=== PATIENT | male | born 1940 | race Caucasian/White ===

== ENCOUNTER 2021-07-12 16:14 | Inpatient (IN) | payer OTHER ==
[~2021-07-12] VITALS: Ht 185.4 cm; Wt 65.8 kg
[2021-07-12] MEDS ORDERED: LIPITOR40 MG PO (17:12)
[2021-07-12] MEDS ORDERED: CARVEDILOL12.5 MG PO (17:13)
[2021-07-12] MEDS ORDERED: FUROSEMIDE 40 M40 M1 PO (17:14)
[2021-07-12] MEDS ORDERED: GABAPENTIN100 MG PO (17:15)
[2021-07-12] MEDS ORDERED: GLIPIZIDE 10 MG10 MG PO (17:16)
[2021-07-12] MEDS ORDERED: NEURONTIN 400M400 M2 PO (17:16)
[2021-07-12] MEDS ORDERED: METFORMIN HCL500 MG PO (17:17)
[2021-07-12] MEDS ORDERED: PROTONIX 20 MG20 M1 PO (17:18)
[2021-07-12] MEDS ORDERED: XARELTO20 MG PO (17:18)
--- NOTE | 2021-07-12 18:36 | NUR ---
PT TRANSFERED TO THE UNIT FROM [facility] VIA AMBULANCE. PT ORIENTED TO ROOM AND BED SPACE. ASSESSMENT CHARTED - SEEN BY ADMITTING DOCTOR - CARDIOLOGY CONSULTED. AWAITING ORDERS. NO CO'S AT THE PRESENT TIME.
[2021-07-12 20:19] VITALS: BP 110/82
[2021-07-12 23:05] LABS: ABSOLUTE NEUTROPHILS 16.4 thou/uL (1.4-8.2); BASOPHILS 0.3 % (0.0-2.0); EOSINOPHILS 0.1 % (0.0-3.0); HEMATOCRIT 38.1 % (42.0-52.0); HEMOGLOBIN 12.6 gm/dL (14.0-18.0); MCH 30.7 pg (26.0-34.0); MCV 92.8 fL (80.0-100.0); MONOCYTES 7.7 % (1.0-8.0); PLATELET COUNT 175 thou/uL (150-400); POLYS 82.9 % (36.0-66.0); RDW 15.3 % (10.5-14.5); WBC 19.8 thou/uL (4.0-11.0)
[2021-07-12 23:14] LABS: CALCIUM 8.6 mg/dL (8.5-10.1); CREATININE 1.9 mg/dL (0.7-1.3); POTASSIUM 4.2 mmol/L (3.5-5.1)
[2021-07-12 23:20] LABS: ALBUMIN 2.6 g/dL (3.4-5.0); MAGNESIUM 2.2 mg/dL (1.8-2.4); TOTAL BILIRUBIN 1.1 mg/dL (0.2-1.0); TOTAL PROTEIN 6.3 g/dL (6.4-8.2)
[2021-07-12 23:29] VITALS: BP 119/55
[2021-07-13] VITALS (9 sets, daily range): BP systolic 108–138; BP diastolic 45–62
[2021-07-13 06:18] LABS: HEMATOCRIT 39.6 % (42.0-52.0); HEMOGLOBIN 13.2 gm/dL (14.0-18.0); MCH 31.1 pg (26.0-34.0); MCHC 33.4 g/dL (28.0-37.0); MCV 93.1 fL (80.0-100.0); RBC 4.25 mil/uL (4.50-6.00); RDW 15.5 % (10.5-14.5)
[2021-07-13 06:35] LABS: APTT 46.3 Seconds (24.5-32.8); INR 1.11
[2021-07-13 07:08] LABS: ALBUMIN 2.6 g/dL (3.4-5.0); CREATININE 1.8 mg/dL (0.7-1.3); MAGNESIUM 2.4 mg/dL (1.8-2.4); POTASSIUM 4.4 mmol/L (3.5-5.1); TOTAL BILIRUBIN 1.1 mg/dL (0.2-1.0); TOTAL PROTEIN 6.9 g/dL (6.4-8.2)
--- NOTE | 2021-07-13 18:25 | NUR ---
ASSESSMENT CHARTED - NO MEDS GIVEN PT NPO TODAY FOR SURGERY THIS AFTERNOON. SPENT THE DAY RESTING IN BED. SLEEPING ON AND OFF. ACCUCHECKS CHARTED - NO COVERAGE GIVEN. PT VOIDING PERURINAL. NO CO'S OF PAIN OR NAUSEA. PT TO SURGERY VIA BED AT 1715 - DAUGHTER HERE AT TIME OF SURGERY.
[2021-07-14] VITALS (10 sets, daily range): BP systolic 103–118; BP diastolic 45–84
[2021-07-14 04:00] LABS: ABSOLUTE NEUTROPHILS 12.3 thou/uL (1.4-8.2); BASOPHILS 0.4 % (0.0-2.0); EOSINOPHILS 0.4 % (0.0-3.0); HEMATOCRIT 35.1 % (42.0-52.0); HEMOGLOBIN 11.3 gm/dL (14.0-18.0); LYMPHOCYTES 8.3 % (24.0-44.0); MCH 30.6 pg (26.0-34.0); MCHC 32.3 g/dL (28.0-37.0); MCV 94.7 fL (80.0-100.0); MONOCYTES 7.5 % (1.0-8.0); PLATELET COUNT 167 thou/uL (150-400); POLYS 83.4 % (36.0-66.0); RBC 3.71 mil/uL (4.50-6.00); RDW 15.6 % (10.5-14.5); WBC 14.7 thou/uL (4.0-11.0)
[2021-07-14 04:07] LABS: ALBUMIN 2.3 g/dL (3.4-5.0); CALCIUM 8.6 mg/dL (8.5-10.1); CREATININE 1.7 mg/dL (0.7-1.3); MAGNESIUM 2.5 mg/dL (1.8-2.4); POTASSIUM 4.1 mmol/L (3.5-5.1); TOTAL BILIRUBIN 1.1 mg/dL (0.2-1.0); TOTAL PROTEIN 6.3 g/dL (6.4-8.2)
--- NOTE | 2021-07-14 07:39 | EKG ---
[place] [address] [facility] [place] [address] ELECTROCARDIOGRAM REPORT Name: AMRITA ALLEN Rosa Room #: 214-P ADM IN M.R.#: [id number] Admission: 07/12/21 Attend Phys: Khalida Cole Discharge: Date of : 44 Report #: [id number] 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
--- NOTE | 2021-07-14 08:25 | 2DMMODE ---
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 There is global hypokinesis of the left ventricle. There is severe hypokinesis in the apical wall. There is normal left ventricular wall thickness. Left ventricular ejection fraction is severely decreased. Left ventricular apical thrombus is present. LVEF is 20%. Grade I - abnormal relaxation pattern. Right Ventricle Right ventricle is at the upper limits of normal. The right ventricular systolic function is normal. Atria Left atrium is at the upper limits of normal. The right atrium size is normal. Aortic Valve The aortic valve is normal in structure. No aortic regurgitation is [address] [place] [address] 2 D/M-MODE ECHOCARDIOGRAM Name: AMRITA ALLEN Room #: 214-P ADM IN M.R.#: [id number] Admission: 07/12/21 Attend Phys: Khalida Kearney Discharge: Date of : 44 Report #: [id number] present. There is no aortic valvular stenosis. Mitral Valve The mitral valve is normal in structure. Mild mitral regurgitation. No evidence of mitral valve stenosis. Tricuspid Valve The tricuspid valve is normal in structure. There is no tricuspid valve regurgitation noted. Pulmonic Valve The pulmonary valve is normal in structure. Great Vessels The aortic root is normal in size. The inferior vena cava is not visualized. Pericardium There is no pericardial effusion. <Conclusion> Left ventricle is dilated measuring 7.4 cm. Left ventricular ejection fraction is severely decreased. LVEF is 20%. There is global hypokinesis of the left ventricle. There is severe hypokinesis in the apical wall. Right ventricle is at the upper limits of normal. The aortic valve is normal in structure. The mitral valve is normal in structure. Mild mitral regurgitation. The tricuspid valve is normal in structure. The pulmonary valve is normal in structure. The aortic root is normal in size. There is no pericardial effusion. Left ventricular apical thrombus is present. <ELECTRONICALLY SIGNED> By: aJson Wagner MD 07/14/21 0159 0159 0159 Jason Wagner MD /SUZIE
--- NOTE | 2021-07-14 10:52 | NUR ---
CONSULT [id number] WAS COMPLETED BY THIS COIN ROLLING MACHINE OPERATOR. MEDICAL STAFF INTERRUPTED AND RUSHED VISIT. THIS COIN ROLLING MACHINE OPERATOR WILL NEED TO FOLLOW UP WITH PT TO CLARIFY HE THOUGHT WAS DONE WITH EVERYTHNG AND HAD NO NEEDS.
--- NOTE | 2021-07-14 16:37 | NUR ---
PATIENT ADMITTED FOR NSTEMI. CHART REVIEWED AND CASE DISCUSSED WITH CARE TEAM. CM MET WITH PT THIS DAY. CM ROLE INTRODUCED. PT REPORTS HE LIVES AT HOME IN APARTMENT BY HIMSELF. HE REPORTS USING A WALKER AND AN ELECTRIC WHEELCHAIR AND HAS FOR 10 YEARS. HE DOES NOT HAVE HOME 02. HE REPORTS NO STAIRS INSIDE APARTMENT AND USES A RAMP OUTSIDE TO GET IN. HE REPORTS HIS SON CHECKS ON HIM EVERY DAY SOMETIMES STAYING A FEW HOURS. ASSIST WITH [employer], AND PAYING BILLS. 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 PT DAUGHTER AT BEDSIDE AND REPORTS PT MAY STAY WITH HIM ON DC WITH SERVICE. REPORTS MADAN . ARRANGING WITH MADAN LIASON AT THIS TIME. CM WILL CONTINUE TO FOLLOW.
--- NOTE | 2021-07-14 17:00 | NUR ---
I have reviewed the documentation by WANDY MUSTAFA from 07/14/21 to 07/14/21 and I concur with it. BABATUNDE BARFIELD, PT, DPT
--- NOTE | 2021-07-15 06:48 | NUR ---
ASSUMED CARE OF PT AT 1900. PT ASSESSED TO BE AOX4 80M PRESENTING POST LAP NANY. PT WAS ABLE TO REST QUIETLY THROUGHOUT THE NIGHT WITH NO COMPLAINTS, VSS. PT STABLE ON ROOM AIR, LAP SITES INTACT, NO PAIN, BULB DRAIN COMPRESSED (35ML OUT), SR BBB ON THE MONITOR, AND AMBULATES SBA WITH A WALKER. RESTING IN ROOM NOW, WILL CONT TO MONITOR.
[2021-07-15] MEDS ORDERED: HYDROCODON-ACE1 EAC7 PO (08:41)
[2021-07-15] MEDS ORDERED: MIRALAX119 GM PO (08:41)
[2021-07-15 09:29] VITALS: BP 120/50
[2021-07-15 13:00] VITALS: BP 126/58
--- NOTE | 2021-07-15 16:41 | NUR ---
CM SPOKE WITH [facility]. THEY ARE UNABLE TO ACCEPT PT AT THIS TIME. WILL REVISIT ON WEDNESDAY IF PT STILL HERE. CM WILL CONTINUE TO FOLLOW WITH DC NEEDS. REFERRAL SENT TO [facility].
[2021-07-15 17:26] VITALS: BP 121/42
[2021-07-15 19:42] VITALS: BP 105/66
--- NOTE | 2021-07-16 03:33 | NUR ---
ASSUMED PT CARE AT 1900.PTWAS OBSERVED LYING ON HIS BED WATCHING TV AT SHIFT CHANGE.LAP SITES C/D/I.BRI HERRERA IN PLACE WITH SEROUSANGUINEOUS DRAINAGE.PT REFUSED HIS MIRALAX AT HS,STATED THAT HE HAS NOT TAKEN IT BEFORE.EDUCATION GIVEN.PT PROGRESSING TOWARDS DC GOALS.CALL LIGHT WITHIN REACH.
[2021-07-16 04:41] VITALS: BP 138/69
[2021-07-16 07:59] VITALS: BP 132/60
[2021-07-16 11:33] LABS: ALBUMIN 2.2 g/dL (3.4-5.0); CALCIUM 8.5 mg/dL (8.5-10.1); CREATININE 1.3 mg/dL (0.7-1.3); POTASSIUM 4.6 mmol/L (3.5-5.1); TOTAL BILIRUBIN 0.9 mg/dL (0.2-1.0); TOTAL PROTEIN 6.6 g/dL (6.4-8.2)
[2021-07-16 11:57] VITALS: BP 125/77
[2021-07-16] MEDS ORDERED: LISINOPRIL2.5 MG PO (13:58)
[2021-07-16] MEDS ORDERED: JARDIANCE10 MG PO (13:58)
[2021-07-16] MEDS ORDERED: LASIX 20 MG TAB20 MG PO (13:58)
--- NOTE | 2021-07-16 15:44 | NUR ---
CM MET WITH PT THIS DAY AND CONTINUE DC PLANNING. [facility] UNABLE TO ACCEPT PT THEY DO NOT SERVICE HIS AREA. REFERRAL ALSO SENT TO [facility] . CALLED AND THEY DO COVER PTS HOME AREA. AWAIING FOR ACCEPTANCE AT THIS TIME. SHOULD PT NOT BE ACCEPTABLE PT AGREES TO GO HOME WITH DAUGHTER IN [place] BEFORE RETURNING HOME. CM WILL CONTINUE TO FOLLOW FOR DC PLANNING ONCE PT MEDICALLY STABLE.
[2021-07-16 16:07] VITALS: BP 112/71
[2021-07-16 21:01] VITALS: BP 131/67
[2021-07-17 03:26] LABS: PROTIME 10.9 Seconds (10.5-12.1)
[2021-07-17 04:23] VITALS: BP 131/59
[2021-07-17 07:45] VITALS: BP 134/54
[2021-07-17 11:50] VITALS: BP 141/53
--- NOTE | 2021-07-17 12:07 | PATH ---
[facility] [place] [address] PATHOLOGY RPT PROCEDURE Name: AMRITA ALLEN Room #: 214-P [facility] IN M.R.#: [id number] Admission: 07/12/21 Date of : 44 Discharge: Report #: [id number] Path Case #: [id number] [facility] Accession Number: [id number] . 01 Material submitted: . gallbladder - GALLBLADDER . 01 Clinical history: . LAPAROSCOPIC CHOLECYSTECOMY . 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 . (SCA:mm; 07/16/2021) [facility] 07/16/2021 [facility] Local . 02 Electronically signed: . Hernando Banks DO, Pathologist NPI- [id number] . 01 Gross description: . Fixative: Formalin Labeled: Gallbladder Specimen received: Previously opened/severely torn gallbladder Dimensions: 9.8 x 4.2 x 4.1 cm Serosa: Adipose-covered Lymph node: Not identified Mucosa: Covered in overlying light green material (a slight amount of velvety, red-brown and grossly is identified at the fundal aspect) Average wall thickness: Up to 0.2 cm Calculi: None identified Abnormalities: None identified . Breaker Boss body, fundus, and the cystic duct margin in cassette A1. (CAA; 07/15/2021) QAC/QA 07/15/2021 0914 Local . 02 Pathologist provided ICD-10: K81.2 . 02 CPT . 143774 Specimen Comment: A courtesy copy of this report has been sent to [phone] Specimen Comment: Report sent to Specimen Comment: A duplicate report has been generated due to demographic updates. [address] [address] PATHOLOGY RPT PROCEDURE Name: AMRITA ALLEN Room #: 214-P [facility] IN M.R.#: [id number] Admission: 07/12/21 Date of : 44 Discharge: Report #: [id number] Path Case #: [id number] Performed at: 01 [facility] [address] [id number] MD Will Goldberg MD Phone: [phone] Performed at: 02 [facility] [address] [id number] Burdick MD Phone: [phone]
[2021-07-17 13:48] VITALS: BP 141/53
--- NOTE | 2021-07-17 13:49 | NUR ---
CM MET WITH PT THIS DAY. PTS DAUGHTER JORGE AT SIDE. PT INSTRUCED CM NOT FINDING HH PROVIDERS ABLE TO ACCEPT PT WITH [facility] AND [facility]. PT AND PTS DAUGHTER REPORT PT WILL THEN GO HOME WITH JORGE FOR A WHILE AND SEE IF CAN GET APPROVAL FOR HH IN [place]. SPOKE TO [facility], [facility], [facility], [facility] INDICATING [place] ADR[facility] WITH DENIALS R/T [place] OR UNABLE TO TAKE PTS [place]. SPOKE WITH PT AND PTS DAUGHTER WHO IS A NURSE AND BOTH VOICED COMFORTABLE TAKING PT TO HER HOME IN [place] AND FOLLOWING UP WITH THEIR PCP AND SHOULD HH NEEDS [place]. NO FURTHER CM INTERVENTIONS AT THIS TIME.
[2021-07-17 16:00] VITALS: BP 147/45
--- NOTE | 2021-07-17 16:51 | NUR ---
ASSUMED CARE OF PATIENT AT 0700. VSS. PATIENT REMAINS A&O. NO C/O MAJOR PAIN AND NO NEED FOR ANY PAIN MEDICATION THIS SHIFT. BRI DRAIN REMAINS IN PLACE TO THE RLQ. PATIENT IS TO DC HOME TODAY ONCE MD GETS ORDERS IN. PATIENT STATES HE WILL BE LEAVING AT SIX IF THE ORDERS ARE NOT IN.
[2021-07-17] MEDS ORDERED: LEVOFLOXACIN750 MG PO (17:34)
[2021-07-17] MEDS ORDERED: WARFARIN SODIUM5 MG PO (17:34)
[2021-07-17] MEDS ORDERED: ACETAMINOPHEN325 M1 PO (17:34)
[2021-07-17 17:57] VITALS: BP 141/53
--- NOTE | 2021-07-18 09:21 | O ---
[facility] [place] [address] [place] [address] OPERATIVE REPORT Name: AMRITA ALLEN Room #: 214-P [facility] IN M.R.#: [id number] Admission: 07/12/21 Attend Phys: Khalida Cole Discharge: 07/17/21 Date of : 44 Report #: [id number] THIS REPORT FOR: cc: FAM - Family physician unknown FAM - Family physician unknown Rivas Ball MD ~ DATE OF SERVICE: 07/13/2021 PREOPERATIVE DIAGNOSIS: Acute cholecystitis. POSTOPERATIVE DIAGNOSIS: Acute gangrenous cholecystitis. OPERATION: Laparoscopic cholecystectomy. SURGEON: Rivas Ball MD. ANESTHESIA: General. ESTIMATED BLOOD LOSS: 50 mL. SPECIMENS: Gallbladder. DRAIN: A 15-Citizen Of [place] round. DESCRIPTION OF PROCEDURE: After informed consent was obtained, the patient was brought to the operating room and placed supine. SCDs were placed and working, preoperative antibiotics were administered, general anesthesia was induced. The abdomen was prepped and draped in the usual sterile fashion. A 10 mm incision was made above the umbilicus. Fascia was incised and a trocar was placed. A pneumoperitoneum was established and a laparoscope was inserted. Three right upper quadrant 5 mm ports were placed. Gallbladder was grasped at the fundus and retracted cephalad. Infundibulum was grasped and retracted laterally. I dissected out the cystic duct and the cystic artery. I was able to find the cystic duct. The gallbladder was gangrenous, although the cystic duct was viable. I made an incision in the cystic duct and placed a cholangiogram catheter. However, the cholangiogram catheter was not able to be performed. There might have been too much inflammation in the cystic duct. The cystic duct was friable and I did not think that a try to manipulate it further would be advisable. I therefore fully identified the cystic plate. I did achieve a view of safety and therefore, I felt comfortable and not manipulating the cystic duct much longer. The catheter was removed. The cystic duct and artery were clipped and ligated leaving a clip on the remaining artery and a PDS Endoloop on the remaining duct. During attempt of the cholangiogram, I was able to make out the characteristic folds and the cystic duct. The gallbladder was then taken off the liver bed with electrocautery. It was [address] [address] OPERATIVE REPORT Name: AMRITA ALLEN Room #: 214-P [facility] IN ..#: [id number] Admission: 07/12/21 Attend Phys: Khalida Cole Discharge: 07/17/21 Date of : 44 Report #: [id number] placed into an Endopouch and removed. Given the amount of necrosis in the gallbladder fossa, I did place a 15-Citizen [place] drain. The ports were then removed under direct vision. The fascia was closed with a [id number] 0 Vicryl. Skin was closed with 4-0 Monocryl. Incisions were dressed with Steri-Strips. COMPLICATIONS: None. DISPOSITION: The patient was taken to recovery in satisfactory condition. <ELECTRONICALLY SIGNED> By: Rivas Ball MD 07/18/2121 1830 1841 Rivas Ball MD /nt
== END 2021-07-17 19:25 | disposition home or self-care (01) | DRG 417 ==
LOC: 2N 16:14
PROVIDERS: Internal Medicine; Nurse Practitioner; Nurse Practitioner Family; ADMIT Hospitalist; ATTEND Hospitalist
PROC: 0FT44ZZ Resection of Gallbladder, Percutaneous Endoscopic Approach (ICD-10-PCS; principal; 2021-07-13)
DX: K82.A1 Gangrene of gallbladder in cholecystitis (principal); I21.4 Non-ST elevation (NSTEMI) myocardial infarction; I50.20 Unspecified systolic (congestive) heart failure; I42.9 Cardiomyopathy, unspecified; I13.0 Hypertensive heart and chronic kidney disease with heart failure and stage 1 through stage 4 chronic kidney disease, or unspecified chronic kidney disease; Z68.1 Body mass index [BMI] 19.9 or less, adult; J44.9 Chronic obstructive pulmonary disease, unspecified; E11.40 Type 2 diabetes mellitus with diabetic neuropathy, unspecified; N18.9 Chronic kidney disease, unspecified; I25.10 Atherosclerotic heart disease of native coronary artery without angina pectoris; E11.22 Type 2 diabetes mellitus with diabetic chronic kidney disease; Z60.2 Problems related to living alone; R63.4 Abnormal weight loss; M81.0 Age-related osteoporosis without current pathological fracture; R53.81 Other malaise; K21.9 Gastro-esophageal reflux disease without esophagitis; I48.0 Paroxysmal atrial fibrillation; Z88.6 Allergy status to analgesic agent; Z88.0 Allergy status to penicillin; Z86.718 Personal history of other venous thrombosis and embolism; Z82.49 Family history of ischemic heart disease and other diseases of the circulatory system; Z87.891 Personal history of nicotine dependence; Z79.01 Long term (current) use of anticoagulants; I25.2 Old myocardial infarction
CPT/HCPCS: 10081; 50101; 50331; 50411; 50555; 51297; 51489; 52265; 52266; 53307; 53312; 53314; 55245; 55317; 56462; 56525; 56526; 56527; 58574; 62110; 62900; 70005